=== PATIENT | male | born 1965 | race Caucasian/White ===

== ENCOUNTER → 2023-03-23 06:18 | Day surgery (SDC) | payer OTHER, SELFPAY | LOC: GI 06:18 | PROVIDERS: ATTENDING PHYSICIAN Internal Medicine Gastroenterology | DX: Z12.11 Encounter for screening for malignant neoplasm of colon (principal); K64.8 Other hemorrhoids | CPT/HCPCS: G0105 ==

== ENCOUNTER → 2024-08-26 12:55 | Outpatient (REF) | payer OTHER, SELFPAY | LOC: HWCARD 12:55 | PROVIDERS: ATTENDING PHYSICIAN Orthopaedic Surgery | DX: Z01.818 Encounter for other preprocedural examination (principal) | CPT/HCPCS: 93005 ==